=== PATIENT | female | born 1980 | race Caucasian/White ===

== ENCOUNTER 2020-08-28 06:42 | Emergency (ER) | payer BC ==
[2020-08-28 06:55] VITALS: BP 152/94; PULSE 107
[2020-08-28] MEDS ORDERED: Sodium Chloride 0.9% 1,000 ML IV SCH (07:15)
[2020-08-28] MEDS ORDERED: Ondansetron 4 MG/2 ML SDV IVPUSH ONE (07:15)
[2020-08-28] MEDS ORDERED: Sodium Chloride 0.9% 10 ML Syringe FLUSH PRN (07:15)
[2020-08-28] MEDS ORDERED: LORazepam 2 MG/ML SDV IVPUSH ONE (07:16)
--- NOTE | 2020-08-28 07:25 | EDM.PDOCBH ---
ED HPI GENERAL MEDICAL PROBLEM - General Chief Complaint: Drug or Alcohol Abuse Stated Complaint: VOMITING/SHAKING/BODY SWEATS Time Seen by Provider: 08/28/20 06:51 Source of Information: Reports: Patient, Family History Limitations: Reports: No Limitations - History of Present Illness INITIAL COMMENTS - FREE TEXT/NARRATIVE: The patient presents with nausea and vomiting. She feels she may have alcohol poisoning. She is scheduled to see someone at [facility] tomorrow for an alcohol assessment. She said she used to drink 4 to 5 times per week. That is down to 4 to 5 times per month but she drinks to the point where she blacks out. She tied one on last night. She had a bottle of wine and a shot. This morning she woke up with nausea and vomiting and she his shaking. Sometimes when she stops drinking she does shake and has a tough time for a couple of days. She is shaking when I go into the room. She denies cough, chest pain, shortness of breath. She does have some mild abdominal cramping with the nausea and vomiting. She did admit to my nurse that she smokes marijuana. Onset: Gradual Duration: Hour(s): Location: Reports: Abdomen Quality: Reports: Other (cramping) Severity: Mild Improves with: Reports: None Worsens with: Reports: None Associated Symptoms: Reports: Fever/Chills, Nausea/Vomiting. Denies: Chest Pain, Cough, Headaches, Shortness of Breath - Related Data Allergies Allergy/AdvReac Type Severity Reaction Status Date / Time ethinyl estradiol Allergy Hives Verified 08/28/20 06:49 [From Ortho Tri-Cyclen (28)] minocycline HCl Allergy Rash Verified 08/28/20 06:49 [From Minocin] norgestimate Allergy Hives Verified 08/28/20 06:49 [From Ortho Tri-Cyclen (28)] Home Meds: Home Meds FLUoxetine [PROzac] 10 mg PO BEDTIME 05/08/15 [History] LORazepam [Ativan] 1 mg PO DAILY #18 tablet 08/28/20 [Rx] Ondansetron [Zofran ODT] 4 mg PO Q6H PRN #20 tab.dis 08/28/20 [Rx] Past Medical History Other HEENT History: uses reading glasses Gastrointestinal History: Reports: Pancreatitis Other Gastrointestinal History: states has had alot of stomach issues in past--"alot of gas." States either is constipated or has loose stools. Psychiatric History: Reports: Addiction - Past Surgical History HEENT Surgical History: Reports: Tonsillectomy Social & Family History - Tobacco Use Tobacco Use Status *Q: Current Every Day Tobacco User Years of Tobacco use: 15 Packs/Tins Daily: 0.5 - Alcohol Use Days Per Week of Alcohol Use: 7 Number of Drinks Per Day: 4 Total Drinks Per Week: 28 - Recreational Drug Use Recreational Drug Use: Yes Drug Use in Last 12 Months: Yes Recreational Drug Type: Reports: Marijuana/Hashish Recreational Drug Use Frequency: Daily ED ROS GENERAL - Review of Systems Review Of Systems: See Below Constitutional: Reports: Chills. Denies: Fever HEENT: Reports: No Symptoms Respiratory: Reports: No Symptoms Cardiovascular: Reports: No Symptoms Endocrine: Reports: No Symptoms GI/Abdominal: Reports: Abdominal Pain, Nausea, Vomiting. Denies: Diarrhea : Reports: No Symptoms Musculoskeletal: Reports: No Symptoms ED EXAM, BEHAVIORAL HEALTH - Physical Exam Exam: See Below Exam Limited By: No Limitations General Appearance: Alert, No Apparent Distress Ears: Normal External Exam Nose: Normal Inspection Head: Atraumatic, Normocephalic Neck: Normal Inspection Respiratory/Chest: No Respiratory Distress, Lungs Clear, Normal Breath Sounds Cardiovascular: Regular Rate, Rhythm, No Edema, No Murmur GI/Abdominal: Soft, Non-Tender, No Organomegaly, No Mass Back Exam: Normal Inspection Extremities: Normal Inspection Neurological: Alert, No Motor/Sensory Deficits, Oriented x 3, Other (shaking) COURSE, BEHAVIORAL HEALTH COMP - Course Vital Signs: Last Vital Signs Temp 96.1 F L 08/28/20 06:50 Pulse 107 H 08/28/20 06:50 Resp 17 08/28/20 06:50 BP 152/94 H 08/28/20 06:50 Pulse Ox 94 L 08/28/20 06:50 Orders, Labs, Meds: Active Orders 24 hr Category Date Time Status Cardiac Monitoring [RC] . DIRECTED Care 08/28/20 07:15 Active Peripheral IV Care [RC] . DIRECTED Care 08/28/20 07:16 Active Sodium Chloride 0.9% [Normal Saline] 1,000 ml Med 08/28/20 07:15 Active IV .BOLUS Sodium Chloride 0.9% [Saline Flush] Med 08/28/20 07:15 Active 10 ml FLUSH ASDIRECTED PRN ED Antiemetic Medication Reflex [OM.PC] Stat Oth 08/28/20 07:15 Ordered Peripheral IV Insertion Adult [OM.PC] Stat Oth 08/28/20 07:15 Ordered Medication Orders Sodium Chloride (Normal Saline) 1,000 mls @ 1,000 mls/hr IV .BOLUS JAN Last Admin: 08/28/20 07:31 Dose: 1,000 mls/hr Documented by: VENANCIO Sodium Chloride (Saline Flush) 10 ml FLUSH ASDIRECTED PRN PRN Reason: Keep Vein Open Last Admin: 08/28/20 07:31 Dose: 10 ml Documented by: VENANCIO Laboratory Tests 08/28/20 08/28/20 08/28/20 Range/Units 07:18 07:25 07:25 WBC 13.66 H (3.98-10.04) K/mm3 RBC 4.88 (3.98-5.22) M/mm3 Hgb 14.8 (11.2-15.7) gm/dl Hct 44.2 (34.1-44.9) % MCV 90.6 D (79.4-94.8) fl MCH 30.3 (25.6-32.2) pg MCHC 33.5 (32.2-35.5) g/dl RDW Std Deviation 42.7 (36.4-46.3) fL Plt Count 356 D (182-369) K/mm3 MPV 9.5 (9.4-12.3) fl Neut % (Auto) 74.5 H (34.0-71.1) % Lymph % (Auto) 17.1 L (19.3-51.7) % Blount % (Auto) 6.1 (4.7-12.5) % Eos % (Auto) 1.7 (0.7-5.8) Baso % (Auto) 0.3 (0.1-1.2) % Neut # (Auto) 10.18 H (1.56-6.13) K/mm3 Lymph # (Auto) 2.34 (1.18-3.74) K/mm3 Blount # (Auto) 0.83 H (0.24-0.36) K/mm3 Eos # (Auto) 0.23 (0.04-0.36) K/mm3 Baso # (Auto) 0.04 (0.01-0.08) K/mm3 Manual Slide Review Abnormal smear Sodium 141 (136-145) mEq/L Potassium 3.6 (3.5-5.1) mEq/L Chloride 104 (98-107) mEq/L Carbon Dioxide 23 (21-32) mEq/L Anion Gap 17.6 H (5-15) BUN 13 (7-18) mg/dL Creatinine 0.8 (0.55-1.02) mg/dL Est Cr Clr Drug Dosing 81.53 mL/min Estimated GFR (MDRD) > 60 (>60) mL/min BUN/Creatinine Ratio 16.3 (14-18) Glucose 102 (74-106) mg/dL Calcium 9.1 (8.5-10.1) mg/dL Total Bilirubin 0.5 (0.2-1.0) mg/dL AST 25 (15-37) U/L ALT 30 (14-59) U/L Alkaline Phosphatase 57 (46-116) U/L Total Protein 8.0 (6.4-8.2) g/dl Albumin 4.3 (3.4-5.0) g/dl Globulin 3.7 gm/dL Albumin/Globulin Ratio 1.2 (1-2) HCG, Qual (NEGATIVE) Salicylates (2.8-20) mg/dL Urine Opiates Screen Negative (AFNIXJ=592) Ur Buprenorphine Scrn Negative (CUTOFF=10) Ur Oxycodone Screen Negative (NWA4LU=346) Urine Methadone Screen Negative (VZHEAA=033) Ur Propoxyphene Screen Negative (OHOSYV=141) Acetaminophen 0 L (10-30) ug/mL Ur Barbiturates Screen Negative (PWVNPI=151) Ur Tricyclics Screen Negative (MNPPHY=758) Ur Phencyclidine Scrn Negative (CUTOFF=25) Ur Amphetamine Screen Negative (LIYPJB=546) U Methamphetamines Scrn Negative (POBONR=025) U Benzodiazepines Scrn Negative (TWPSMM=266) U Cocaine Metab Screen Negative (VXNDFP=193) U Marijuana (THC) Screen Presumptive positive H (CUTOFF=50) Ethyl Alcohol 0.00 (0.00) gm% 08/28/20 08/28/20 Range/Units 07:25 07:25 WBC (3.98-10.04) K/mm3 RBC (3.98-5.22) M/mm3 Hgb (11.2-15.7) gm/dl Hct (34.1-44.9) % MCV (79.4-94.8) fl MCH (25.6-32.2) pg MCHC (32.2-35.5) g/dl RDW Std Deviation (36.4-46.3) fL Plt Count (182-369) K/mm3 MPV (9.4-12.3) fl Neut % (Auto) (34.0-71.1) % Lymph % (Auto) (19.3-51.7) % Blount % (Auto) (4.7-12.5) % Eos % (Auto) (0.7-5.8) Baso % (Auto) (0.1-1.2) % Neut # (Auto) (1.56-6.13) K/mm3 Lymph # (Auto) (1.18-3.74) K/mm3 Blount # (Auto) (0.24-0.36) K/mm3 Eos # (Auto) (0.04-0.36) K/mm3 Baso # (Auto) (0.01-0.08) K/mm3 Manual Slide Review Sodium (136-145) mEq/L Potassium (3.5-5.1) mEq/L Chloride (98-107) mEq/L Carbon Dioxide (21-32) mEq/L Anion Gap (5-15) BUN (7-18) mg/dL Creatinine (0.55-1.02) mg/dL Est Cr Clr Drug Dosing mL/min Estimated GFR (MDRD) (>60) mL/min BUN/Creatinine Ratio (14-18) Glucose (74-106) mg/dL Calcium (8.5-10.1) mg/dL Total Bilirubin (0.2-1.0) mg/dL AST (15-37) U/L ALT (14-59) U/L Alkaline Phosphatase (46-116) U/L Total Protein (6.4-8.2) g/dl Albumin (3.4-5.0) g/dl Globulin gm/dL Albumin/Globulin Ratio (1-2) HCG, Qual Negative (NEGATIVE) Salicylates 4.8 (2.8-20) mg/dL Urine Opiates Screen (JUZJFU=564) Ur Buprenorphine Scrn (CUTOFF=10) Ur Oxycodone Screen (STG8QA=703) Urine Methadone Screen (HPNVAL=387) Ur Propoxyphene Screen (PDWYYJ=925) Acetaminophen (10-30) ug/mL Ur Barbiturates Screen (RRIRGR=942) Ur Tricyclics Screen (BZGAJX=951) Ur Phencyclidine Scrn (CUTOFF=25) Ur Amphetamine Screen (BDQNPG=984) U Methamphetamines Scrn (ZPBTKO=721) U Benzodiazepines Scrn (SZTPWS=640) U Cocaine Metab Screen (TOJCAN=966) U Marijuana (THC) Screen (CUTOFF=50) Ethyl Alcohol (0.00) gm% Medications Generic Name Dose Route Start Last Admin Trade Name Freq PRN Reason Stop Dose Admin Sodium Chloride 1,000 mls @ 1,000 mls/hr 08/28/20 07:15 08/28/20 07:31 Normal Saline IV 1,000 mls/hr .BOLUS JAN Administration Sodium Chloride 10 ml 08/28/20 07:15 08/28/20 07:31 Saline Flush FLUSH 10 ml ASDIRECTED PRN Administration Keep Vein Open Discontinued Medications Generic Name Dose Route Start Last Admin Trade Name Freq PRN Reason Stop Dose Admin Lorazepam 1 mg 08/28/20 07:16 08/28/20 07:27 Ativan IVPUSH 08/28/20 07:17 1 mg ONETIME ONE Administration Ondansetron HCl 4 mg 08/28/20 07:15 08/28/20 07:29 Zofran IVPUSH 08/28/20 07:16 4 mg ONETIME ONE Administration Re-Assessment/Re-Exam: I ordered an IV NS 1L bolus, zofran 4mg IV, ativan 1mg IV, and labs. Her WBC was elevated at 13.66. Her anion gap was elevated at 17.6. Her HCG is negative. Her UDS was presumptive positive for marijuana. The salicylate and acetaminophen were negative. Her ETOH was 0. She feels better now. I will get her some ativan and zofran for at home. Departure - Departure Time of Disposition: 09:00 Disposition: Home, Self-Care 01 Condition: Good Clinical Impression: Alcohol withdrawal Qualifiers: Complication of substance-induced condition: uncomplicated Qualified Code(s): F10.230 - Alcohol dependence with withdrawal, uncomplicated - Discharge Information *PRESCRIPTION DRUG MONITORING PROGRAM REVIEWED*: No *COPY OF PRESCRIPTION DRUG MONITORING REPORT IN PATIENT MAUREEN: No Prescriptions: LORazepam [Ativan] 1 mg PO DAILY #18 tablet Ondansetron [Zofran ODT] 4 mg PO Q6H PRN #20 tab.dis PRN Reason: Nausea\\vomiting Referrals: Christa Garza MD [Primary Care Provider] - 1 Week Forms: ED Department Discharge Additional Instructions: Take the zofran every 6 hours as needed for nausea and vomiting. Take the ativan 1mg by mouth 3 times per day for 3 days, then 1mg 2 times per day for 3 days and then 1mg at night for 3 days. Drink plenty of fluids. Follow up with [facility] tomorrow. Please return if you are worse. Sepsis Event Note (ED) - Evaluation Sepsis Screening Result: No Definite Risk - Focused Exam Vital Signs: Vital Signs Temp Pulse Resp BP Pulse Ox 08/28/20 06:50 96.1 F L 107 H 17 152/94 H 94 L - My Orders Last 24 Hours: My Active Orders 08/28/20 07:15 Cardiac Monitoring [RC] . DIRECTED Sodium Chloride 0.9% [Normal Saline] 1,000 ml IV .BOLUS Sodium Chloride 0.9% [Saline Flush] 10 ml FLUSH ASDIRECTED PRN ED Antiemetic Medication Reflex [OM.PC] Stat Peripheral IV Insertion Adult [OM.PC] Stat 08/28/20 07:16 Peripheral IV Care [RC] . DIRECTED - Assessment/Plan Last 24 Hours: My Active Orders 08/28/20 07:15 Cardiac Monitoring [RC] . DIRECTED Sodium Chloride 0.9% [Normal Saline] 1,000 ml IV .BOLUS Sodium Chloride 0.9% [Saline Flush] 10 ml FLUSH ASDIRECTED PRN ED Antiemetic Medication Reflex [OM.PC] Stat Peripheral IV Insertion Adult [OM.PC] Stat 08/28/20 07:16 Peripheral IV Care [RC] . DIRECTED
[2020-08-28 08:04] LABS: ACETAMINOPHEN 0 ug/mL (10-30)
== END 2020-08-28 09:20 | disposition home or self-care (01) ==
LOC: JD.ED 06:42
DX: F10.230 Alcohol dependence with withdrawal, uncomplicated (principal); Z88.8 Allergy status to other drugs, medicaments and biological substances; Z88.1 Allergy status to other antibiotic agents; Z79.899 Other long term (current) drug therapy; Z72.0 Tobacco use
CPT/HCPCS: 36415; 80053; 80143; 80179; 80306; 80307; 84703; 85025; 96374; 96375; 99284; 99284-25; J2060; J2405; J7030

== ENCOUNTER 2021-06-10 15:20 | Emergency (ER) | payer BC ==
[2021-06-10 15:29] VITALS: BP 145/92; PULSE 85
[2021-06-10] MEDS ORDERED: Rabies Vaccine (Avian) 2.5 Unit Inj Kit IM ONE (15:47)
[2021-06-10] MEDS ORDERED: Rabies Immune Globulin PF 150 Units/ML 2 ML SDV IM ONE (15:47)
--- NOTE | 2021-06-10 16:02 | EDM.PDOC ---
ED HPI GENERAL MEDICAL PROBLEM - General Chief Complaint: Bite:Animal, Insect Stated Complaint: CAT BITE Time Seen by Provider: 06/10/21 15:27 Source of Information: Reports: Patient, RN Notes Reviewed History Limitations: Reports: No Limitations - History of Present Illness INITIAL COMMENTS - FREE TEXT/NARRATIVE: Patient is a 41-year-old female presents to the ER for possible rabies postexposure therapy. States that she was petting a stray cat last night, when the cat bit her multiple times on both hands. She does not know this cat, and is not aware if it was vaccinated. She went to the walk-in clinic today and received a course of antibiotics and a Tdap for ongoing management but was told she did not need the rabies vaccine at that time. The patient became concerned due to not knowing the cats vaccination status and she was able to speak with the [facility] who did state that she would likely be a good candidate for rabies postexposure therapy. Patient feels fine with no sick symptoms. States that the bites seem to be a little bit more tender today. - Related Data Allergies Allergy/AdvReac Type Severity Reaction Status Date / Time amoxicillin [From Augmentin] Allergy Vomiting Verified 06/10/21 15:29 clavulanic acid Allergy Vomiting Verified 06/10/21 15:29 [From Augmentin] ethinyl estradiol Allergy Hives Verified 06/10/21 15:29 [From Ortho Tri-Cyclen (28)] minocycline HCl Allergy Rash Verified 06/10/21 15:29 [From Minocin] norgestimate Allergy Hives Verified 06/10/21 15:29 [From Ortho Tri-Cyclen (28)] Home Meds: Home Meds . [No Known Home Meds] 06/10/21 [History] Past Medical History Other HEENT History: uses reading glasses Gastrointestinal History: Reports: Pancreatitis Other Gastrointestinal History: states has had alot of stomach issues in past--"alot of gas." States either is constipated or has loose stools. Psychiatric History: Reports: Addiction - Past Surgical History HEENT Surgical History: Reports: Tonsillectomy Social & Family History - Tobacco Use Tobacco Use Status *Q: Current Every Day Tobacco User Years of Tobacco use: 20 Packs/Tins Daily: 1 - Recreational Drug Use Recreational Drug Use: No ED ROS GENERAL - Review of Systems Review Of Systems: Comprehensive ROS is negative, except as noted in HPI. ED EXAM, ANIMAL BITE - Physical Exam Exam: See Below Exam Limited By: No Limitations General Appearance: Alert, WD/WN, No Apparent Distress Respiratory/Chest: No Respiratory Distress, Lungs Clear, Normal Breath Sounds, No Accessory Muscle Use, Chest Non-Tender Cardiovascular: Normal Peripheral Pulses, Regular Rate, Rhythm, No Edema Peripheral Pulses: 2+: Radial (L), Radial (R) Extremities: Normal Range of Motion, Normal Capillary Refill Neurological: Alert, Oriented, Normal Cognition, No Motor/Sensory Deficits Psychiatric: Normal Affect, Normal Mood Skin Exam: Normal Color, Warm/Dry, Other (Multiple puncture-like wounds over the patient's hands and forearms.) Course - Vital Signs Last Recorded V/S: Last Vital Signs Temp 97.8 F 06/10/21 15:27 Pulse 85 06/10/21 15:27 Resp 16 06/10/21 15:27 BP 145/92 H 06/10/21 15:27 Pulse Ox 96 06/10/21 15:27 - Orders/Labs/Meds Meds: Medications Discontinued Medications Generic Name Dose Route Start Last Admin Trade Name Freliseth PRN Reason Stop Dose Admin Rabies Immune Globulin 1,200 unit 06/10/21 15:47 Rabies Immune Globulin Pf 150 Units/Ml 2 Ml Sdv IM 06/10/21 15:48 .ONCE ONE Rabies Vaccine 2.5 unit 06/10/21 15:47 Rabies Vaccine (Earnest) 2.5 Unit Inj Kit IM 06/10/21 15:48 .ONCE ONE - Re-Assessments/Exams Free Text/Narrative Re-Assessment/Exam: 06/10/21 16:02 Patient presents to the ER for evaluation of possible post exposure rabies therapy. I do believe she would be a good candidate to start this, orders have been written to facilitate this. Departure - Departure Time of Disposition: 15:57 Disposition: Home, Self-Care 01 Condition: Good Clinical Impression: Need for post exposure prophylaxis for rabies - Discharge Information *PRESCRIPTION DRUG MONITORING PROGRAM REVIEWED*: No *COPY OF PRESCRIPTION DRUG MONITORING REPORT IN PATIENT MAUREEN: No Instructions: Rabies Referrals: Christa Garza MD [Primary Care Provider] - Additional Instructions: You were evaluated in ER today for a possible need for the rabies vaccine/postexposure therapy. Due to you not being able to obtain the cat for quarantine, it has been recommended that you start the rabies vaccine. First dose was given at today's visit. And you will need to get at least 3 more shots on 06/13, 06/17, and July 01, 2021. It is important that you do not miss any of these shots. Our hospital will call you or coordinate with you to get these scheduled. Continue all other medications as prescribed. Do not hesitate to return to the ER at any time if symptoms change or worsen. Sepsis Event Note (ED) - Evaluation Sepsis Screening Result: No Definite Risk - Focused Exam Vital Signs: Vital Signs Temp Pulse Resp BP Pulse Ox 06/10/21 15:27 97.8 F 85 16 145/92 H 96
[2021-06-10] MEDS ORDERED: Rabies Immune Globulin/PF 300 UNIT/ML 5 ML SDV IM ONE (16:45)
== END 2021-06-10 17:40 | disposition home or self-care (01) ==
LOC: JD.ED 15:20
DX: Z23 Encounter for immunization (principal); Z88.0 Allergy status to penicillin; Z88.1 Allergy status to other antibiotic agents; Z88.8 Allergy status to other drugs, medicaments and biological substances; Z72.0 Tobacco use
CPT/HCPCS: 90375; 90471; 90675; 96372; 99283

== ENCOUNTER → 2022-02-25 | Day surgery (SDC) | payer BC ==
[~2022-02-25] MED LIST: Acetaminophen 325 MG Tab PO ONE; Bupivacaine 0.5%/EPINEPHrine 1:200,000 50 ML MDV ONE; Clindamycin Phosphate in D5W 900 MG in Premix Bag 1 BAG IV ONE; Dexamethasone 4 MG/ML 5 ML MDV ONE; Gabapentin 300 MG Cap PO ONE; HYDROmorphone 0.5 MG/0.5 ML Syringe IVPUSH PRN; Lactated Ringers 1,000 ML IV SCH; Lidocaine 1% 5 ML VIAL ONE; Lidocaine 1% with EPINEPHrine 1:100,000 20 ML MDV ONE; Lidocaine 1%/Sod Bicarbonate in NS 8.4% 1 ML Syringe IDERM PRN; Ondansetron 4 MG/2 ML SDV ONE; Propofol 200 MG/20 ML SDV ONE; Rocuronium 50 MG/5 ML Vial ONE; Scopolamine 1.5 MG Transdermal Patch TOP ONE; Sodium Chloride 0.9% 10 ML Syringe FLUSH PRN; Sodium Chloride 0.9% 10 ML Syringe FLUSH SCH; Sugammadex Sodium 200 MG/2 ML VIAL ONE; fentaNYL 100 MCG/2 ML SDV IVPUSH PRN; fentaNYL 100 MCG/2 ML SDV ONE; metroNIDAZOLE/Normal Saline 100 ML ONE
[2022-02-25 19:17] VITALS: BP 132/77; PULSE 85
== END | disposition home or self-care (01) ==
LOC: JD.SDS 12:30
PROVIDERS: ATTEND Surgery
DX: K35.80 Unspecified acute appendicitis (principal); F41.9 Anxiety disorder, unspecified; F32.A Depression, unspecified; F17.200 Nicotine dependence, unspecified, uncomplicated; G43.909 Migraine, unspecified, not intractable, without status migrainosus; Z88.8 Allergy status to other drugs, medicaments and biological substances; Z88.1 Allergy status to other antibiotic agents; Z98.890 Other specified postprocedural states; Z79.899 Other long term (current) drug therapy
CPT/HCPCS: 44970; 93005; A9270; J1100; J2405; J2704; J3010; J3490; J7120

== ENCOUNTER 2022-04-24 13:39 | Emergency (ER) | payer BC ==
[2022-04-24] MEDS ORDERED: Sodium Chloride 0.9% 10 ML Syringe FLUSH PRN (14:00)
[2022-04-24] MEDS ORDERED: Sodium Chloride 0.9% 1,000 ML IV STA (14:20)
[2022-04-24] MEDS ORDERED: Ondansetron 4 MG/2 ML SDV IVPUSH ONE (14:20)
[2022-04-24] MEDS ORDERED: LORazepam 2 MG/ML SDV IVPUSH ONE (14:20)
[2022-04-24] MEDS ORDERED: Ketorolac 30 MG/ML SDV IVPUSH ONE (15:46)
[2022-04-24 18:40] VITALS: BP 126/81; PULSE 69
== END 2022-04-24 18:20 | disposition home or self-care (01) ==
LOC: JD.ED 13:39
DX: F10.230 Alcohol dependence with withdrawal, uncomplicated (principal); F17.210 Nicotine dependence, cigarettes, uncomplicated; Z88.8 Allergy status to other drugs, medicaments and biological substances; Z88.0 Allergy status to penicillin; Y90.0 Blood alcohol level of less than 20 mg/100 ml
CPT/HCPCS: 36415; 80053; 80143; 80179; 80307; 84443; 85007; 85027; 93005; 96361; 96374; 96375; 99285; J1885; J2060; J2405; J3490; J7030

== ENCOUNTER 2023-08-10 16:13 | Emergency (ER) | payer BC ==
[2023-08-10 17:16] LABS: BASOPHILS ABSOLUTE AUTO 0.1 K/mm3 (0.0-0.2); BASOPHILS PERCENT AUTO 0.6 % (0.0-1.0); EOSINOPHILS ABSOLUTE AUTO 0.2 K/mm3 (0.0-0.4); EOSINOPHILS PERCENT AUTO 2.9 % (0.0-6.0); HEMATOCRIT 35.4 % (37.0-47.0); HEMOGLOBIN 12.1 gm/dl (12.0-16.0); IMMATURE GRAN ABSOLUTE AUTO 0.02 K/mm3 (0.00-0.05); IMMATURE GRAN PERCENT AUTO 0.3 % (0.0-0.4); LYMPHOCYTES ABSOLUTE AUTO 2.9 K/mm3 (1.0-4.8); LYMPHOCYTES PERCENT AUTO 36.9 % (24.0-44.0); MEAN CORPUSCULAR HGB CONC 34.2 g/dl (32.0-36.0); MEAN CORPUSCULAR VOLUME 87.8 fl (83.0-99.0); MEAN PLATELET VOLUME 9.3 fl (9.4-12.3); MONOCYTES ABSOLUTE AUTO 0.7 K/mm3 (0.0-0.8); MONOCYTES PERCENT AUTO 8.7 % (0.0-8.0); NEUTROPHILS PERCENT AUTO 50.6 % (41.0-71.0); PLATELET COUNT,PLT 222 K/mm3 (150-400); RED BLOOD CELL COUNT 4.03 M/mm3 (4.10-5.30); WHITE BLOOD CELL COUNT,WBC 7.96 K/mm3 (3.9-11.3)
[2023-08-10 17:41] LABS: A/G RATIO 1.2 (1-2); ALBUMIN 3.6 g/dl (3.4-5.0); ANION GAP 13.5 (5-15); BILIRUBIN TOTAL 0.2 mg/dL (0.2-1.0); BUN/CREATININE RATIO 13.8 (14-18); CALCIUM 8.5 mg/dL (8.5-10.1); CREATININE 0.8 mg/dL (0.55-1.02); EST CRCL DRUG DOSING (CG) 82.43 mL/min; POTASSIUM,K 3.5 mEq/L (3.5-5.1); PROTEIN TOTAL,TP 6.6 g/dl (6.4-8.2)
[2023-08-10 18:51] VITALS: BP 124/77; PULSE 54
== END 2023-08-10 18:20 | disposition home or self-care (01) ==
LOC: JD.ED 16:13
DX: G89.18 Other acute postprocedural pain (principal); J45.909 Unspecified asthma, uncomplicated; Z86.16 Personal history of COVID-19; Z88.0 Allergy status to penicillin; Z88.1 Allergy status to other antibiotic agents; Z88.8 Allergy status to other drugs, medicaments and biological substances
CPT/HCPCS: 36415; 80053; 85025; 85379; 99283